=== PATIENT | male | born 1980 | race Caucasian/White ===

== ENCOUNTER → 2018-02-03 | Outpatient (CLI) | payer MEDICARE, OTHER ==
--- NOTE | 2018-02-03 14:59 | RADIOLOGY REPORT (SQ) ---
EXAM DESCRIPTION: MRI LT UPPER JOINT WITHOUT COMPLETED DATE/TIME: 02/03/2018 1:33 pm REASON FOR STUDY: PAIN IN LEFT SHOULDER M25.512 PAIN IN LEFT SHOULDER COMPARISON: None. TECHNIQUE: Left shoulder images acquired and stored on PACS. Multiplanar imaging to include fat sens itive sequences such as T1, water sensitive sequences such as FST2/STIR, cartilage sensitive sequence s such as FSPD/gradient-echo sequences. LIMITATIONS: None. FINDINGS: BONE MARROW AND CORTEX: See AC joint findings below. Marrow signal in the bones otherwise normal. JOINT OR BURSAL EFFUSION: No significant joint or bursal fluid. No suggestion of loose bodies. GLENO-HUMERAL ARTICULATION: Normal articulation. No subluxation. No cystic change. No osteophytes or cartilage loss. ACROMION AND AC JOINT: Pronounced marrow edema, most notable in the distal clavicle. Mild subchondra l cystic changes with regional soft tissue edema. Mild down slope of the acromion, however the subac romial space is preserved. ROTATOR CUFF AND INTERVAL: Thickening and tendinosis in the supraspinatus. No high-grade partial or full-thickness tear. No cuff muscle atrophy. Mild scar in the rotator interval. This may be related to adhesive capsulitis. LABRUM AND BICEPS LABRAL COMPLEX: Prominent undercutting of the biceps anchor, more conspicuous bonnie n typical. Suspicious for type 2 lesion. Biceps tendon intact. REMAINDER OF LABRUM AND IGHL : Thickened inferior capsular tissues. Likely related to adhesive capsu litis. No displaced labral tear inferiorly. PERIARTICULAR AND ADJACENT SOFT TISSUES: No masses or abnormal nodes. OTHER: No other significant finding. IMPRESSION: 1. Pronounced edema in the distal clavicle with prominent subchondral cysts/ erosions. Patient has a history of previous AC joint separation. 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 2. Suspicious for type 2 SLAP tear. 3. Cuff tendinosis. 4. Probable adhesive cap sulitis. TECHNICAL DOCUMENTATION: JOB ID: [id number] [employer]- All Rights Reserved Reading location - IP/workstation name: [facility]-[id number]
== END ==
LOC: RAD 11:57
PROVIDERS: ATTEND Orthopaedic Surgery
DX: M25.512 Pain in left shoulder (principal)

== ENCOUNTER → 2020-09-23 | Outpatient (CLI) | payer MEDICARE, OTHER ==
[~2020-09-23] MED LIST: COVID-19 VACCINE (PFIZER)/PF 30 MCG/0.3 ML VIAL IM ONE; EPINEPHRINE INJ/PF 1 MG/1 ML AMPULE IM PRN
== END ==
LOC: EMPHEALTH 16:48
PROVIDERS: ATTEND Internal Medicine
DX: Z23 Encounter for immunization (principal)
CPT/HCPCS: 91300